=== PATIENT | male | born 1995 | race Caucasian/White ===

== ENCOUNTER 2018-06-19 16:53 | Emergency (ER) | payer BC, OTHER ==
[~2018-06-19] VITALS: Ht 175.3 cm; Wt 92.1 kg
[2018-06-19] MEDS ORDERED: ACETAMINOPHEN 500 MG TABLET PO ONE (18:00)
[2018-06-19] MEDS ORDERED: ACETAMINOPHEN 325 MG TABLET PO ONE (18:00)
[2018-06-19] MEDS ORDERED: ACETAMINOPHEN 500 MG TABLET ONE (18:01)
[2018-06-19 18:04] VITALS: BP 106/63
== END 2018-06-19 19:14 | disposition home or self-care (01) ==
LOC: ED 17:52
DX: S00.12XA Contusion of left eyelid and periocular area, initial encounter (principal); X58.XXXA Exposure to other specified factors, initial encounter; Y93.89 Activity, other specified; Y92.410 Unspecified street and highway as the place of occurrence of the external cause; Y99.8 Other external cause status
CPT/HCPCS: 70450; 70486; 99284